=== PATIENT | male | born 1965 | race Hispanic/Latino ===

== ENCOUNTER 2025-04-08 08:37 | Emergency (ER) | payer BC ==
[~2025-04-08] VITALS: Ht 167.6 cm; Wt 113.4 kg
--- NOTE | 2025-04-08 08:42 | NUR ---
UA CUP PROVIDED
--- NOTE | 2025-04-08 09:06 | ERN ---
General Chief Complaint: Flank Pain Stated Complaint: RT FLANK PAIN Time Seen by MD: 08:41 Source: patient History of Present Illness Initial Comments This patient is a 59-year-old gentleman who presented with complaint of right lower quadrant pain which started 3 days ago. Patient stated that he feels more pain when he puts pressure on the affected side of leg. Denies nausea or vomiting. Pain does not radiate and is constant in severity. No change in bowel movements reported. Patient denies urinary irritation or frequency. Timing/Duration: constant Severity: moderate Allergies: Coded Allergies: No Known Allergies (Unverified Allergy, Unknown, 04/08/25) Home Meds Active Scripts Meloxicam (Meloxicam) 15 Mg Tablet, 15 MG PO DAILY PRN for PAIN for 10 Days, #10 TAB Prov:SHILO CASIANO 04/08/25 Past Medical History Past Medical History: Other Medical History Other: BLOOD TRANSFUSION 2020 Past Surgical History: None Constitutional: (-) chills, (-) diaphoresis, (-) fever, (-) malaise, (-) weakness, (-) other documentation EENTM: (-) eye pain, (-) blurred vision, (-) tearing, (-) double vision, (-) ear pain, (-) ear discharge, (-) nose pain, (-) nose congestion, (-) throat pain, (-) Throat swelling, (-) mouth pain, (-) tooth pain, (-) mouth swelling, (-) other documentation Respiratory: (-) cough, (-) orthopnea, (-) short of breath, (-) stridor, (-) wheezing, (-) other documentation Cardiovascular: (-) chest pain, (-) edema, (-) palpitations, (-) syncope, (-) dyspnea on exertion, (-) other documentation Gastrointestinal/Abdominal: (+) abdominal pain (Right lower quadrant) Genitourinary: (-) penile discharge, (-) dysuria, (-) frequency, (-) hematuria, (-) pain, (-) other documentation Musculoskeletal: (-) Neck pain, (-) back pain, (-) Flank Pain, (-) joint pain, (-) joint swelling, (-) muscle pain, (-) muscle stiffness, (-) gout, (-) other documentation Skin: (-) laceration, (-) contusion, (-) abrasion, (-) abscess, (-) rash, (-) change in color, (-) change in hair, (-) change in nails, (-) diaphoresis, (-) dryness, (-) other documentation Neuro: (-) altered mental status, (-) headache, (-) syncope, (-) paralysis, (-) numbness, (-) seizure, (-) pre-existing deficit, (-) tremors, (-) weakness, (-) dizziness, (-) slurred speech, (-) vertigo, (-) other documentation Psych: (-) depression, (-) suicidal ideation, (-) anxiety, (-) emotional problems, (-) auditory hallucinations, (-) visual hallucinations Hematologic/Lymphatic: (-) anemia, (-) blood clots, (-) easy bleeding, (-) easy bruising, (-) swollen glands, (-) other documentation Physical Exam General Appearance: (+) no apparent distress Orientation: (+) alert, (+) oriented x 3 Ear, Nose, Throat: (+) hearing grossly normal, (+) normal ENT inspection, (+) moist mucous membraine, (+) normal pharynx Neck: (+) normal inspection, (+) supple, (+) full range of motion Respiratory: (+) chest non-tender, (+) lungs clear, (+) well ventilated Heart: (+) regular Vascular: (+) no edema Gastrointestinal: (+) soft, (+) tender (Pain in right lower quadrant) Extremities: (+) normal range of motion, (+) non-tender, (+) normal inspection Neurologic/Psychiatric: (+) normal speech, (+) no motor defecits, (+) no sensory deficits Skin: (+) normal color Results Laboratory and Microbiology Lab and Micro Result Laboratory Tests Test 04/08/25 09:04 04/08/25 10:58 White Blood Count 8.8 K/uL (4.8-10.8) Red Blood Count 4.97 MIL/uL (4.50-6.20) Hemoglobin 13.1 g/dL (14.0-18.0) L Hematocrit 40.9 % (42-54) L Mean Corpuscular Volume 82.3 fL (79-99) Mean Corpuscular Hemoglobin 26.4 pg (27.0-33.0) L Mean Corpuscular Hemoglobin Concent 32.0 g/dL (32.0-36.0) Red Cell Distribution Width 15.5 % (11.0-15.5) Platelet Count 264 K/uL (130-400) Mean Platelet Volume 11.1 fL (7.5-10.5) H Immature Granulocyte % (Auto) 0.3 % (0-1) Neutrophils (%) (Auto) 72.7 % (40.0-77.0) Lymphocytes (%) (Auto) 19.5 % (21.0-51.0) L Monocytes (%) (Auto) 4.7 % (3.0-13.0) Eosinophils (%) (Auto) 2.2 % (0.0-8.0) Basophils (%) (Auto) 0.6 % (0.0-5.0) Neutrophils # (Auto) 6.4 K/uL (1.8-7.7) Lymphocytes # (Auto) 1.7 K/uL (1.0-4.8) Monocytes # (Auto) 0.4 K/uL (0.1-1.0) Eosinophils # (Auto) 0.19 K/uL (0.00-0.70) Basophils # (Auto) 0.05 K/uL (0.00-0.20) Absolute Immature Granulocyte (auto 0.03 K/uL (0-1) Nucleated Red Blood Cells 0.0 % (0.0-0.19) Sodium Level 141 mmol/L (136-145) Potassium Level 3.7 mmol/L (3.5-5.1) Chloride Level 104 mmol/L (101-111) Carbon Dioxide Level 30 mmol/L (21-32) Blood Urea Nitrogen 20 mg/dL (7-18) H Creatinine 1.0 mg/dL (0.5-1.3) Glomerular Filtration Rate Calc 86 mL/min (>90) Random Glucose 139 mg/dL (70-105) H Total Calcium 8.7 mg/dL (8.5-10.1) Total Bilirubin 0.5 mg/dL (0.2-1.0) Direct Bilirubin 0.1 mg/dL (0.0-0.3) Aspartate Amino Transf (AST/SGOT) 16 U/L (10-37) Alanine Aminotransferase (ALT/SGPT) 24 U/L (12-78) Alkaline Phosphatase 109 U/L (50-136) Total Protein 7.4 g/dL (6.0-8.3) Albumin 3.5 g/dL (3.5-5.0) Urine Color YELLOW (YELLOW) Urine Appearance CLEAR (CLEAR) Urine pH 6.0 (5.0-8.0) Urine Specific [place] 1.028 (1.001-1.031) Urine Protein 10 mg/dL (NEGATIVE) H Urine Glucose (UA) NEGATIVE mg/dL (NEGATIVE) Urine Ketones NEGATIVE mg/dL (NEGATIVE) Urine Occult Blood NEGATIVE (NEGATIVE) Urine Nitrate NEGATIVE (NEGATIVE) Urine Bilirubin NEGATIVE mg/dL (NEGATIVE) Urine Urobilinogen 0.2 mg/dL (0.2-1.0) Urine Leukocyte Esterase NEGATIVE [place]/uL Urine RBC 0-1 /HPF (0-1) Urine WBC 2-5 /HPF (0-1) H Urine Bacteria None /HPF (None Seen) EKG/XRAY/US/CT/MRI CT Scan Comment PATIENT: SHIRIN TENA MR#: [id number] : 1965 SEX: M AGE: 59 LOCATION: [facility] ORDER 8 STATUS: [facility] REPORT#: [id number] SERVICE [id number] REASON: RLQ PAIN ORDERING PHYSICIAN: ANGUS MAYO MD PROCEDURE: ABD PEL W - CT ABDOMEN/PELVIS W/CONTRAST EXAM: CT Abdomen and Pelvis with IV contrast CLINICAL HISTORY: RLQ PAIN TECHNIQUE: Axial computed tomography images of the abdomen and pelvis with intravenous contrast. CONTRAST: with intravenous contrast. COMPARISON: None provided. FINDINGS: LUNG BASES: The lung bases appear clear. No pleural effusions are seen. LIVER: 1.54 x 1.2 cm-sized cyst in the left lobe of the liver. GALLBLADDER AND BILE DUCTS: The gallbladder appears within normal limits. No radioopaque gallstones are seen. No biliary ductal dilatation is evident. PANCREAS: Unremarkable. SPLEEN: Unremarkable. ADRENAL GLANDS: Unremarkable. KIDNEYS, URETERS, AND BLADDER: Mild bilateral perinephric fat stranding is concerning for renal parenchymal disease. There is no hydronephrosis or hydroureter. No urinary calculi are seen. STOMACH AND BOWEL: Large mixed sliding and paraesophageal hiatus hernia. Colonic diverticulosis without diverticulitis. No evidence of bowel obstruction. No evidence suggesting enteritis or colitis. APPENDIX: Normal appendix. PERITONEUM: No free fluid. No free air. LYMPH NODES: No lymphadenopathy is evident. REPRODUCTIVE: Mild bilateral hydrocele. VASCULATURE: No evidence of abdominal aortic aneurysm. BONES: Degenerative changes in the visualized spine in the form of marginal osteophytes and degenerative discs at multiple lumbar levels. No aggressive appearing osseous lesion. No acute osseous pathology evident. IMPRESSION: 1. No acute intra-abdominal or pelvic pathology. 2. Large mixed sliding and paraesophageal hiatus hernia. 3. Mild bilateral perinephric fat stranding, concerning for renal parenchymal disease. 4. Colonic diverticulosis without diverticulitis. /[place] DICTATED BY: COOPER DYSON Jr., MD DATE: 04/08/251314 ELECTRONICALLY SIGNED BY: COOPER DYSON Jr., MD DATE: 04/08/251314 [facility] This patient is a 59-year-old gentleman who presented with complaint of right lower quadrant pain which started 3 days ago. Patient stated that he feels more pain when he puts pressure on the affected side of leg. Denies nausea or vomiting. Pain does not radiate and is constant in severity. No change in bowel movements reported. Patient denies urinary irritation or frequency. Differential diagnosis: Right hip osteoarthritis, iliopsoas muscle strain. CT scan of abdomen and pelvis with IV contrast was done which showed no acute process. Findings were as follows: 1. No acute intra-abdominal or pelvic pathology. 2. Large mixed sliding and paraesophageal hiatus hernia. 3. Mild bilateral perinephric fat stranding, concerning for renal parenchymal disease. 4. Colonic diverticulosis without diverticulitis. Patient was given Toradol for pain management. CBC and BMP were taken. ED Course Orders Procedure Category Date Status Time Cbc With Differential LAB 04/08/25 Complete 08:55 Basic Metabolic Panel LAB 04/08/25 Complete 08:55 Hepatic Function Panel LAB 04/08/25 Complete 08:55 Urinalysis Profile LAB 04/08/25 Complete 08:55 Ketorolac PHA 04/08/25 Complete Tromethamine 15mg/Ml 09:30 Ketorolac PHA 04/08/25 Complete Tromethamine 15mg/Ml 09:30 Ct Abdomen/Pelvis CT 04/08/25 Resulted W/Contrast 09:47 Iohexol (Omnipaque) PHA 04/08/25 Complete 11:17 Current Medications Medications (Trade) Dose Ordered Sig/Alexis Route PRN Reason Start Time Stop Time Status Last Admin Dose Admin Iohexol (Omnipaque) 75 ml STK-MED ONCE IV 04/08/25 11:17 04/08/25 11:17 DC Ketorolac Tromethamine (toRADol) 15 mg ONCE ONCE IM 04/08/25 09:30 04/08/25 09:21 DC Ketorolac Tromethamine (toRADol) 15 mg ONCE ONCE IV 04/08/25 09:30 04/08/25 09:31 DC 04/08/25 10:21 Vital Signs Date Time Temp Pulse Resp B/P (MAP) Pulse Ox O2 Delivery O2 Flow Rate FiO2 04/08/25 12:39 97.3 82 18 138/81 99 Room Air* 0 21 04/08/25 10:32 97.9 90 18 143/76 99 Room Air* 0 21 04/08/25 08:38 98.2 101 20 169/82 99 Room Air DX & DISP Disposition: Discharge Departure Impression: Primary Impression: Right hip pain Additional Impression: RLQ abdominal pain Condition: Stable Scripts Meloxicam (Meloxicam) 15 Mg Tablet 15 MG PO DAILY PRN for PAIN for 10 Days, #10 TAB Prov: SHILO CASIANO DO 04/08/25 Additional Instructions: There are no concerning findings on your workup here today. Your vital signs have been stable. Your blood work (CBC, metabolic panel, liver function tests, lipase, urinalysis) is unremarkable. The CT scan of your abdomen and pelvis with and without contrast are unremarkable. Your symptoms are most consistent with a musculoskeletal type pain. There are no signs of dangerous pathology. I have prescribed meloxicam, which you can take once per day for pain. If you continue with symptoms after a week or so, I recommend he follow up with your primary doctor for further evaluation. Please return to the emergency department if you have any concerns. Referrals: SELF,REFERRAL (PCP) Time of Disposition: 13:10 I have examined patient, & reviewed all documents, & agreed W/ the Diagnosis, and Plan ATTESTATION BY PHYSICIAN I have seen and examined the patient. I reviewed the documentation, medical decision making, and treatment plan as noted by the resident provider above. I agree with the findings and plan of care. SHILO CASIANO DO I performed a substantive portion of the visit. I have reviewed and personally made and approve the management plan that is documented in the notes by myself with [place]/resident. I acknowledged full responsibility for the patient's management plan. 59-year-old male with right flank right lower quadrant and right hip pain. Clinically it appears to be MSK pain, but the patient's family is quite worried that it could be his kidneys or has a appendix. Labs are unremarkable urinalysis unremarkable CT scans unremarkable. Symptoms most consistent with a MSK pain, given pain control we will DC. ANGUS MAYO MD Apr 08, 2025 09:06 SHILO CASIANO DO Apr 08, 2025 12:22
[2025-04-08 09:22] LABS: IMMATURE GRANULOCYTE ABSOLUTE 0.03 K/uL (0-1); NUCLEATED RED BLOOD CELLS 0.0 % (0.0-0.19); PLATELET COUNT (AUTO) 264 K/uL (130-400); RED BLOOD CELL COUNT(AUTO) 4.97 MIL/uL (4.50-6.20); RED CELL DISTRIBUTION WIDTH 15.5 % (11.0-15.5); WHITE BLOOD COUNT (AUTO) 8.8 K/uL (4.8-10.8)
[2025-04-08 09:32] LABS: CREATININE 1.0 mg/dL (0.5-1.3); GLOMERULAR FILTR. RATE CALC 86.0 mL/min (>90); GLUCOSE,RANDOM 139.0 mg/dL (70-105); SODIUM SERUM 141.0 mmol/L (136-145); UREA NITROGEN, BLOOD 20.0 mg/dL (7-18)
[2025-04-08 09:37] LABS: ASPARTATE AMINOTRANSFERASE 16.0 U/L (10-37); TOTAL PROTEIN, SERUM 7.4 g/dL (6.0-8.3)
[2025-04-08 11:14] LABS: APPEARANCE,URINE CLEAR (CLEAR); GLUCOSE, URINE (UA) NEGATIVE (NEGATIVE); LEUKOCYTE ESTERASE ,URINE NEGATIVE Leu/uL (NEGATIVE); NITRATE,URINE NEGATIVE (NEGATIVE); OCCULT BLOOD,URINE NEGATIVE (NEGATIVE)
[2025-04-08 11:15] LABS: ADD UA MICROSCOPIC YES
[2025-04-08] MEDS ORDERED: IOHEXOL-350 75 ML VIAL IV ONE (11:17)
--- NOTE | 2025-04-08 12:16 | HMCIMG ---
EXAM: CT Abdomen and Pelvis with IV contrast CLINICAL HISTORY: RLQ PAIN TECHNIQUE: Axial computed tomography images of the abdomen and pelvis with intravenous contrast. CONTRAST: with intravenous contrast. COMPARISON: None provided. FINDINGS: LUNG BASES: The lung bases appear clear. No pleural effusions are seen. LIVER: 1.54 x 1.2 cm-sized cyst in the left lobe of the liver. GALLBLADDER AND BILE DUCTS: The gallbladder appears within normal limits. No radioopaque gallstones are seen. No biliary ductal dilatation is evident. PANCREAS: Unremarkable. SPLEEN: Unremarkable. ADRENAL GLANDS: Unremarkable. KIDNEYS, URETERS, AND BLADDER: Mild bilateral perinephric fat stranding is concerning for renal parenchymal disease. There is no hydronephrosis or hydroureter. No urinary calculi are seen. STOMACH AND BOWEL: Large mixed sliding and paraesophageal hiatus hernia. Colonic diverticulosis without diverticulitis. No evidence of bowel obstruction. No evidence suggesting enteritis or colitis. APPENDIX: Normal appendix. PERITONEUM: No free fluid. No free air. LYMPH NODES: No lymphadenopathy is evident. REPRODUCTIVE: Mild bilateral hydrocele. VASCULATURE: No evidence of abdominal aortic aneurysm. BONES: Degenerative changes in the visualized spine in the form of marginal osteophytes and degenerative discs at multiple lumbar levels. No aggressive appearing osseous lesion. No acute osseous pathology evident. IMPRESSION: 1. No acute intra-abdominal or pelvic pathology. 2. Large mixed sliding and paraesophageal hiatus hernia. 3. Mild bilateral perinephric fat stranding, concerning for renal parenchymal disease. 4. Colonic diverticulosis without diverticulitis. /[place]
[2025-04-08] MEDS ORDERED: MELO-108 PO (12:21)
[2025-04-08 12:39] VITALS: BP 138/81; PULSE 82; RESP 18; TEMP 97.4; O2SAT 99
== END 2025-04-08 12:40 | disposition home or self-care (01) ==
LOC: EDH 08:37
DX: M25.551 Pain in right hip (principal); R10.31 Right lower quadrant pain
CPT/HCPCS: 99284; 74177; 96374; 80076; 80048; 85025; 81001; 36415; J1885; Q9967